=== PATIENT | male | born 1975 | race Asian ===

== ENCOUNTER → 2016-11-03 | Outpatient (CLI) | payer OTHER ==
--- NOTE | 2016-11-03 08:28 | DIAGNOSTIC IMAGING REPORT ---
Right upper quadrant ultrasound (LIVER) ABDOMEN LIMITED CLINICAL HISTORY: B18.1 Chronic viral hepatitis [id number] pain. Hepatitis. TECHNIQUE: Ultrasound COMPARISON STUDY: 03/21/2015 FINDINGS: Normal gallbladder. Common bile duct 4 mm. Liver is uniform. Pancreas and right kidney unremarkable. IMPRESSION: Normal study Electronically signed by: Graham Connolly M.D. 11/03/2016 8:27 AM Dictated Date/Time: 11/03/2016 8:26 AM
== END | disposition home or self-care (01) ==
LOC: C.ULTR 08:01
PROVIDERS: ATTEND Internal Medicine Infectious Disease
DX: B18.1 Chronic viral hepatitis B without delta-agent (principal)